=== PATIENT | female | born 1935 | race Caucasian/White ===

== ENCOUNTER 2017-08-22 12:56 | Inpatient (IN) | payer MEDICARE, BC ==
[2017-08-22] MEDS ORDERED: ACETAMINOPHEN 500 MG 500 MG TAB PO PRN (13:42)
[2017-08-22] MEDS ORDERED: SODIUM CHLORIDE 0.9% 500 ML 500 ML IV ONE (14:00)
[2017-08-22] MEDS ORDERED: ALBUTEROL NEB SOL 2.5MG/3ML 1 VIAL SOL NEB PRN (14:08)
[2017-08-22] MEDS: ENOXAPARIN 40 MG SOL SC SCH (15:47)
[2017-08-22] MEDS: NICOTINE 7 MG PATCH TD SCH (19:53)
[2017-08-22] MEDS ORDERED: SIMVASTATIN 20 MG TAB ONE (20:57)
[2017-08-22] MEDS: TRAMADOL HYDROCHLORIDE 50 MG TAB PO PRN (21:57)
[2017-08-22] MEDS: ASPIRIN 81 MG CHEWABLE CTB PO SCH (21:57)
[2017-08-22] MEDS: SIMVASTATIN 20 MG TAB PO SCH (21:57)
[2017-08-22] MEDS: [UNRECOGNIZED DRUG - MIXTURE] EACHEYE SCH (21:58)
[2017-08-22] MEDS: FOSINOPRIL SODIUM 20 MG PO SCH (21:58)
[2017-08-22] MEDS: METOPROLOL SUCCINATE 25 MG TAB.ER.24H PO SCH (21:58)
[2017-08-23] MEDS: LEVOTHYROXINE SODIUM 50 MCG TAB PO SCH (06:06)
[2017-08-23 08:05] LABS: CALCIUM 8.8 mg/dl (8.5-10.1); CARBON DIOXIDE 29.3 mEq/L (21-32); CREATININE 0.61 mg/dl (0.60-1.00); POTASSIUM 3.5 mMol/L (3.5-5.1)
[2017-08-23 08:41] LABS: HEMATOCRIT 49 % (35-47); HEMOGLOBIN 17.2 gm/dl (12.0-15.5); MEAN CORPUSCULAR HEMOGLOBIN 30.6 pg (27.0-32.0); MEAN CORPUSCULAR HGB CONC 35.4 gm/dl (32.0-36.0); MEAN CORPUSCULAR VOLUME 87 fL (81-99)
[2017-08-23] MEDS: SODIUM CHLORIDE 0.9% 1000ML 1,000 ML IV SCH ×2 (09:28→19:25)
[2017-08-23] MEDS: [UNRECOGNIZED DRUG - MIXTURE] EACHEYE SCH ×4 (09:28→20:45)
[2017-08-23 09:35] LABS: BAND NEUTROPHILS % (MANUAL) 1 %; BASOPHILS % (MANUAL) 0 % (0-3); EOSINOPHILS % (MANUAL) 0 % (0-9); LYMPHOCYTES % (MANUAL) 24 % (10-50); MONOCYTES % (MANUAL) 9 % (0-12); NEUTROPHILS % (MANUAL) 66 % (37-80); NORMAL RBCS PRESENT
[2017-08-23] MEDS: ENOXAPARIN 40 MG SOL SC SCH (14:10)
[2017-08-23] MEDS: NICOTINE 7 MG PATCH TD SCH (14:16)
[2017-08-23 19:47] LABS: CALCIUM 8.3 mg/dl (8.5-10.1); CARBON DIOXIDE 31.6 mEq/L (21-32); CREATININE 0.77 mg/dl (0.60-1.00)
[2017-08-23 19:51] LABS: POTASSIUM 3.3 mMol/L (3.5-5.1)
[2017-08-23] MEDS ORDERED: POTASSIUM CHLORIDE 10 MEQ TER PO ONE (20:09)
[2017-08-23] MEDS: SIMVASTATIN 20 MG TAB PO SCH (20:44)
[2017-08-23] MEDS: ASPIRIN 81 MG CHEWABLE CTB PO SCH (20:44)
[2017-08-23] MEDS: FOSINOPRIL SODIUM 20 MG PO SCH (20:45)
[2017-08-23] MEDS: METOPROLOL SUCCINATE 25 MG TAB.ER.24H PO SCH (20:45)
[2017-08-24] MEDS: TRAMADOL HYDROCHLORIDE 50 MG TAB PO PRN ×4 (02:54→21:21)
[2017-08-24] MEDS: SODIUM CHLORIDE 0.9% 1000ML 1,000 ML IV SCH ×2 (05:30→16:04)
[2017-08-24] MEDS: LEVOTHYROXINE SODIUM 50 MCG TAB PO SCH (06:20)
[2017-08-24 08:09] LABS: CREATININE 0.55 mg/dl (0.60-1.00); POTASSIUM 3.7 mMol/L (3.5-5.1)
[2017-08-24] MEDS: [UNRECOGNIZED DRUG - MIXTURE] EACHEYE SCH ×4 (09:11→21:23)
[2017-08-24] MEDS: ENOXAPARIN 40 MG SOL SC SCH (13:31)
[2017-08-24] MEDS: NICOTINE 7 MG PATCH TD SCH (16:03)
[2017-08-24 21:21] VITALS: RESP 20
[2017-08-24] MEDS: ASPIRIN 81 MG CHEWABLE CTB PO SCH (21:21)
[2017-08-24] MEDS: SIMVASTATIN 20 MG TAB PO SCH (21:21)
[2017-08-24] MEDS: METOPROLOL SUCCINATE 25 MG TAB.ER.24H PO SCH (21:22)
[2017-08-24] MEDS: FOSINOPRIL SODIUM 20 MG PO SCH (21:22)
[2017-08-25] MEDS: SODIUM CHLORIDE 0.9% 1000ML 1,000 ML IV SCH (01:13)
[2017-08-25] MEDS: TRAMADOL HYDROCHLORIDE 50 MG TAB PO PRN ×2 (04:16→10:03)
[2017-08-25] MEDS: LEVOTHYROXINE SODIUM 50 MCG TAB PO SCH (06:58)
[2017-08-25 07:29] LABS: CALCIUM 8.4 mg/dl (8.5-10.1); CARBON DIOXIDE 30.9 mEq/L (21-32); CREATININE 0.58 mg/dl (0.60-1.00); POTASSIUM 3.9 mMol/L (3.5-5.1)
[2017-08-25 09:10] VITALS: BP 161/73; PULSE 61; TEMP 97.6; O2SAT 97
[2017-08-25] MEDS: [UNRECOGNIZED DRUG - MIXTURE] EACHEYE SCH (09:45)
== END 2017-08-25 14:10 | disposition hospice, home (50) | DRG 641 ==
LOC: ACUTE CARE 12:56
PROVIDERS: ADMIT Emergency Medicine; ATTEND Emergency Medicine
PROC: F01K5ZZ Range of Motion and Joint Integrity Assessment of Musculoskeletal System - Upper Back / Upper Extremity (ICD-10-PCS; principal; 2017-08-24)
PROC: F01L5ZZ Range of Motion and Joint Integrity Assessment of Musculoskeletal System - Lower Back / Lower Extremity (ICD-10-PCS; 2017-08-24)
PROC: F01ZDZZ Gait and/or Balance Assessment (ICD-10-PCS; 2017-08-24)
PROC: F01ZBZZ Bed Mobility Assessment (ICD-10-PCS; 2017-08-24)
DX: E87.1 Hypo-osmolality and hyponatremia (principal); L89.322 Pressure ulcer of left buttock, stage 2; F17.200 Nicotine dependence, unspecified, uncomplicated; R22.2 Localized swelling, mass and lump, trunk; R22.31 Localized swelling, mass and lump, right upper limb; R06.02 Shortness of breath; R05 Cough; J44.9 Chronic obstructive pulmonary disease, unspecified
CPT/HCPCS: 36415; 71260; 72192; 73060; 73200; 80048; 85007; 85027; 94150; 99232; J1650; Q9967; A4450; A6232; A9270-GY